=== PATIENT | male | born 1955 | race Caucasian/White ===

== ENCOUNTER → 2017-11-11 | Outpatient (CLI) | payer MEDICARE, OTHER ==
--- NOTE | 2017-11-13 09:16 | PE ---
EXAMINATION TYPE: PET CT fusion skull to thigh DATE OF EXAM: 11/11/2017 COMPARISON: PET CT April 13, 2013. MRI neck June 15, 2011 HISTORY: Oral cavity cancer completed treatment in 2012 TECHNIQUE: Following the intravenous administration of 13.33 mCi of F-18 FDG, whole body images are performed from the skull base to the midthigh. Images are reviewed on the computer in the coronal, a xial, and sagittal planes. Reconstructed rotating images are created on independent workstation and reviewed on the computer. A noncontrast CT is performed in conjunction with the PET scan. SCAN: Subsequent Scan FINDINGS: SKULL BASE AND NECK: There has been extensive neck surgery with lower mandibular resection and numer ous surgical clips from prior surgery and reconstruction. Vertical rami of mandible remain in place w ith fixation hardware. There is asymmetric subtle sclerosis of left vertical ramus with hypermetaboli c uptake, max SUV is 5.83. No suspicious osseous destruction is seen. No new areas of suspicious hype rmetabolic uptake are otherwise identified. CHEST, MEDIASTINUM, AND HILAR REGION: No new suspicious areas of hypermetabolic uptake are seen. ABDOMEN AND PELVIS: No new areas of suspicious hypermetabolic uptake are identified. OSSEOUS STRUCTURES: No suspicious areas of hypermetabolic uptake are seen. OTHER CT: Extensive lymph node dissection and reconstruction surgery superior to the vocal cords is p resent. Hyoid bone remains in place. Adjacent clips are identified. There is mild emphysematous change in visualized lung apices. There is coronary artery calcification which is noted marker for coronary artery disease. Ascending aorta measures 3.8 cm in diameter axial image 95. There is calcified left lower lobe granuloma axial image 104. There are additional calcified left hil ar lymph nodes. Findings are consistent with product of old granulomatous disease as there are additi onal calcifications scattered throughout the visualized spleen. Patient is very little intra-abdominal fat making evaluation on CT difficult. There is moderate to severe calcified plaque of the infrarenal abdominal aorta extending into branch vessels. There is facet arthropathy lower lumbar levels. Spine is straightened on sagittal images. IMPRESSION: Some asymmetric hypermetabolic uptake with sclerosis left horizontal ramus of mandible fa vors treatment change, neoplasm at this level is not entirely excluded. No suspicious cortical destru ction is evident. Consider contrast-enhanced CT correlation. Otherwise no convincing evidence for loc al or metastatic malignant recurrence.
== END | disposition home or self-care (01) ==
LOC: RADPETMAIN 08:25
PROVIDERS: ATTEND Internal Medicine Hematology & Oncology
DX: C06.9 Malignant neoplasm of mouth, unspecified (principal); M27.8 Other specified diseases of jaws
CPT/HCPCS: 78815; A9552

== ENCOUNTER → 2018-08-23 | Outpatient (CLI) | payer MEDICARE, OTHER ==
--- NOTE | 2018-08-23 09:54 | CT ---
EXAMINATION TYPE: CT chest w con DATE OF EXAM: 08/23/2018 COMPARISON: PET/CT 05/12/2018 HISTORY: Pulmonary nodule right mid lung CT DLP: 334 mGycm Automated exposure control for dose reduction was used. CONTRAST: CT scan of the chest is performed with IV Contrast, patient injected with 100 mL of Isovue 300. FINDINGS: LUNGS: Pulmonary nodule seen right middle lobe on CT is not redemonstrated. No new pulmonary nodules are identified. There is a calcified nodule left lower lobe stable from PET/CT compatible with remote granulomatous. No evidence for focal infiltrate or volume loss. MEDIASTINUM: There are no greater than 1 cm hilar or mediastinal lymph nodes. No pericardial effusi on is seen. Thoracic aorta is of normal caliber. The heart is not enlarged. UPPER ABDOMEN: No significant abnormality appreciated. OTHER: No additional significant abnormality is seen. IMPRESSION: 1. Previously noted right middle lobe nodule is not redemonstrated. No new nodules seen. 2. Evidence of remote granulomatous disease.
== END ==
LOC: RADCTMAIN 08:34
PROVIDERS: ATTEND Internal Medicine Hematology & Oncology
DX: C06.9 Malignant neoplasm of mouth, unspecified (principal); R91.1 Solitary pulmonary nodule; Z88.5 Allergy status to narcotic agent; Z88.7 Allergy status to serum and vaccine
CPT/HCPCS: 71260; Q9967